=== PATIENT | male | born 1975 | race Caucasian/White ===

== ENCOUNTER 2019-03-04 01:17 | Emergency (ER) | payer SELFPAY ==
[2019-03-04 03:16] LABS: #Basophils 0.1 thou/uL (0.0-0.2); #Eosinphils 0.1 thou/uL (0.0-0.7); #Lymphocytes 3.1 thou/uL (1.20-3.40); #Monocytes 0.7 thou/uL (0.11-0.59); #Neutrophils 5.8 thou/uL (1.40-6.50); %Eosinophils 0.8 % (0.0-10.0); %Lymphocytes 31.5 % (21.0-51.0); %Monocytes 7.3 % (0.0-10.0); %Neutrophils 59.4 % (42.0-75.0); Hemoglobin 16.1 g/dL (14.0-18.0); Mean Corpuscular HGB CONC 34.5 g/dL (32.0-36.0); Mean Corpuscular Hemoglobin 30.6 pg (27.0-31.0); Mean Corpuscular Volume 88.6 fL (78.0-98.0); Mean Platelet Volume 6.2 fL (7.4-10.4); Platelet Count 278 thou/uL (130-400); RBC Distribution Width 11.9 % (11.5-14.5); Red Blood Cell (RBC) Count 5.28 mill/uL (4.70-6.10); White Blood Cell (WBC) Count 9.8 thou/uL (4.8-10.8)
[2019-03-04 03:38] LABS: ALT (SGPT) 18 U/L (8-55); AST (SGOT) 22 U/L (5-34); Albumin 4.7 g/dL (3.5-5.0); Alkaline Phosphatase 81 U/L (40-150); Anion Gap 11 mmol/L (10-20); BUN (Urea Nitrogen) 11 mg/dL (8.9-20.6); Bilirubin, Total 0.4 mg/dL (0.2-1.2); Calc. Creatinine Clearance 0 mL/min (70-130); Calcium 10.2 mg/dL (7.8-10.44); Carbon Dioxide 27 mmol/L (22-29); Chloride 105 mmol/L (98-107); Estimated GFR-MDRD Greater than 90; Globulin 3.2 g/dL (2.4-3.5); Glucose 102 mg/dL (70-105); Protein, Total 7.9 g/dL (6.0-8.3); Sodium 139 mmol/L (136-145)
== END 2019-03-04 04:35 | disposition home or self-care (01) ==
LOC: ERS 01:17
DX: R56.9 Unspecified convulsions (principal); F31.9 Bipolar disorder, unspecified; F17.210 Nicotine dependence, cigarettes, uncomplicated
CPT/HCPCS: 36415; 80053; 84146; 85025; 99284

== ENCOUNTER 2019-08-03 14:09 | Emergency (ER) | payer SELFPAY ==
--- NOTE | 2019-08-03 17:13 | RAD ---
EXAM: Two views chest PROVIDED CLINICAL HISTORY: Cough COMPARISON: 08/22/2018 FINDINGS: Cardiac and mediastinal silhouette appears within normal limits. Lungs appear free of significant opa city. No pleural fluid or pneumothorax apparent. Lungs remain hyperinflated. IMPRESSION: No evidence for an acute cardiopulmonary process.
--- NOTE | 2019-08-03 17:27 | RAD ---
EXAM: XR Ribs Lt>=2 View STANDARD PROVIDED CLINICAL HISTORY: Pain FINDINGS: There is no evidence for displaced fracture, pleural fluid or pneumothorax. IMPRESSION: As above.
== END 2019-08-03 17:34 | disposition home or self-care (01) ==
LOC: ERS 14:09
DX: J20.9 Acute bronchitis, unspecified (principal); F17.210 Nicotine dependence, cigarettes, uncomplicated; F31.9 Bipolar disorder, unspecified; Z87.01 Personal history of pneumonia (recurrent); Z79.899 Other long term (current) drug therapy
CPT/HCPCS: 71046; 87081; 87430; 87804

== ENCOUNTER 2019-11-27 03:14 | Emergency (ER) | payer SELFPAY | END 2019-11-27 03:46 | disposition home or self-care (01) | LOC: ERS 03:14 | DX: M79.604 Pain in right leg (principal); M79.605 Pain in left leg; M25.562 Pain in left knee; F31.9 Bipolar disorder, unspecified; F60.3 Borderline personality disorder; F17.210 Nicotine dependence, cigarettes, uncomplicated; Z79.899 Other long term (current) drug therapy; Z87.01 Personal history of pneumonia (recurrent) | CPT/HCPCS: 99283 ==

== ENCOUNTER 2021-05-09 17:23 | Emergency (ER) | payer SELFPAY ==
[2021-05-09 21:06] LABS: SARS-CoV-2 NAA Rapid Test Not Detected (NotDetected)
== END 2021-05-09 20:21 | disposition home or self-care (01) ==
LOC: ERS 17:23
DX: J06.9 Acute upper respiratory infection, unspecified (principal); F17.210 Nicotine dependence, cigarettes, uncomplicated; Z20.822 Contact with and (suspected) exposure to COVID-19; Z79.899 Other long term (current) drug therapy
CPT/HCPCS: 0240U; 99284

== ENCOUNTER 2021-08-11 06:14 | Emergency (ER) | payer OTHER ==
[2021-08-11 13:33] LABS: SARS-CoV-2 PCR by NAA DETECTED (NotDetected)
== END 2021-08-11 07:00 | disposition home or self-care (01) ==
LOC: ERS 06:14
DX: U07.1 COVID-19 (principal); R56.9 Unspecified convulsions; F17.210 Nicotine dependence, cigarettes, uncomplicated
CPT/HCPCS: 71045; 87804; U0003; U0005